=== PATIENT | male | born 1970 | race Caucasian/White ===

== ENCOUNTER 2017-08-19 13:10 | Emergency (ER) | payer OTHER ==
[~2017-08-19] VITALS: Ht 170.2 cm; Wt 2.5 kg
[2017-08-19 14:20] VITALS: BP 159/88
== END 2017-08-19 13:40 | disposition home or self-care (01) ==
LOC: FSED 13:10
DX: M54.2 Cervicalgia (principal); M62.838 Other muscle spasm; I10 Essential (primary) hypertension
CPT/HCPCS: 99282